=== PATIENT | female | born 1960 | race Caucasian/White ===

== ENCOUNTER → 2016-02-25 | Outpatient (CLI) | payer BC ==
--- NOTE | 2016-02-25 09:44 | Diagnostic Imaging Report ---
Indication: Cough and right-sided chest pain for 3 days. Discussion: Two views of the chest were obtained, no comparison. The lungs are mildly hyperinflated. Normal heart size. No focal consolidation, pleural fluid, or pneumothorax. Age-related degenerative changes are noted within the thoracic spine. No acute osseous abnormality identified. Impression: 1. Mild pulmonary hyperinflation. Dictated by: Dictated on workstation # [id number]
== END ==
LOC: RAD 09:25
PROVIDERS: ATTEND Nurse Practitioner Family
DX: R05 Cough (principal)
CPT/HCPCS: 71020

== ENCOUNTER → 2016-05-27 | Outpatient (REF) | payer BC | LOC: LAB 11:39 | PROVIDERS: ATTEND Family Medicine | DX: R07.89 Other chest pain (principal) | CPT/HCPCS: 82553; 84484 ==

== ENCOUNTER → 2016-06-01 | Outpatient (CLI) | payer BC ==
--- NOTE | 2016-06-01 10:28 | PROCEDURE REPORT ---
DATE OF NOTE: 06/01/2016 PRE-OPERATIVE DIAGNOSIS: Atypical chest pain POST-OPERATIVE DIAGNOSIS: Atypical chest pain PROCEDURE: Stress treadmill SURGEON: Sivakumar Lim MD SURGERY AIDE: None ANESTHESIA: None HISTORY AND PRESENT ILLNESS: The patient is a 48-year-old white female, who was having some atypical chest pain not associated with exercise. She was then scheduled for cardiac stress treadmill. DESCRIPTION OF PROCEDURE: After informed signed consent, the patient was placed on the treadmill and a Romel protocol was used. She exercised for 9 minutes 22 seconds on that protocol achieving greater than 85% of her maximum heart rate. Predicted duration for age was 7 minutes 0 seconds. Blood pressure response was adequate. She had no chest pain, no claudication and developed no arrhythmias. She had no significant ST segment changes noted on her tracing. CONCLUSION: Negative stress treadmill. Recommendation of these results was discussed by me with the patient. Keep her regular scheduled follow up with Dr. Lim.
== END ==
LOC: RT 07:28
PROVIDERS: ATTEND Family Medicine
DX: R07.89 Other chest pain (principal)
CPT/HCPCS: 93017

== ENCOUNTER → 2016-06-10 | Outpatient (CLI) | payer BC ==
--- NOTE | 2016-06-10 12:04 | Diagnostic Imaging Report ---
INDICATION: Acute right knee pain. COMPARISONS: None available. TECHNIQUE: 3 views of the right knee. FINDINGS: No acute fracture or traumatic malalignment. Normal osseous mineralization. Degenerative joint space narrowing of the lateral compartment with small marginal osteophytes are noted. There are also small osteophytes within the patellofemoral compartment. Suprapatellar and infrapatellar enthesopathy is noted. Small knee joint effusion. There is a nonaggressive exophytic excrescence arising from the medial aspect of proximal fibular head with tip pointing inferiorly. This appearance favors a benign osteochondroma. IMPRESSION: 1. No acute osseous abnormality about the right knee. 2. Mild tricompartmental knee osteoarthritis, greatest in the lateral compartment. 3. Incidental note of benign osteochondroma of the proximal fibular metaphysis. Dictated by: Dictated on workstation # [id number]
== END ==
LOC: RAD 08:39
PROVIDERS: ATTEND Nurse Practitioner Family
DX: M25.561 Pain in right knee (principal); M17.11 Unilateral primary osteoarthritis, right knee
CPT/HCPCS: 73562

== ENCOUNTER → 2016-06-22 | Outpatient (CLI) | payer BC ==
--- NOTE | 2016-06-22 15:40 | Diagnostic Imaging Report ---
INDICATION: Uterine enlargement. TECHNIQUE: Pelvic sonography was performed with transabdominal views. FINDINGS: The uterus measures 12.3 x 5.6 x 8.6 cm. There are multiple probable fibroid lesions in the uterus with the largest measuring 3.3 x 3.2 x 3.7 cm. The right ovary is normal and measures 1.9 x 1.3 x 1.2 cm. The left ovary is normal and measures 2.2 x 1.3 x 1.5 cm. There is no free fluid. IMPRESSION: Enlarged uterus with multiple fibroids, the largest measuring about 3.7 cm in maximal diameter. The endometrium is not thickened. Both ovaries appear unremarkable. Dictated by: Dictated on workstation # [id number]
--- NOTE | 2016-06-24 14:11 | Diagnostic Imaging Report ---
DIG [facility]ERNZO BILAT SCREEN W CAD. COMPARISON: 06/17/2015, 06/14/2014, and 06/13/2013. INDICATION: Screening mammography. TECHNIQUE: Digital screening mammography was obtained with a computer-aided detection (CAD) system. FINDINGS: The breasts are almost entirely fatty. No dominant mass, suspicious microcalcifications or architectural distortion to suggest malignancy. IMPRESSION: Stable mammogram without evidence of malignancy. Followup screening mammogram in 12 months is recommended. ACR BI-RADS Category 1: Negative. Result letter will be mailed to the patient. Note: At least 10% of breast cancer is not imaged by mammography. Dictated by: Dictated on workstation # [id number]
== END ==
LOC: RAD 13:56
PROVIDERS: ATTEND Obstetrics & Gynecology
DX: Z12.31 Encounter for screening mammogram for malignant neoplasm of breast (principal); N85.2 Hypertrophy of uterus
CPT/HCPCS: 76856; G0202

== ENCOUNTER → 2016-06-29 | Outpatient (REF) | payer BC ==
[2016-06-29 10:18] LABS: BILIRUBIN,URINE Negative (Negative); CLARITY,URINE Clear; COLOR,URINE Yellow; GLUCOSE, URINE (UA) Negative (Negative); LEUKOCYTE ESTERASE, URINE Negative (Negative); UROBILINOGEN,URINE 0.2 mg/dL (0.2-1.0)
[2016-06-29 10:30] LABS: RBC,URINE 0-2 /HPF; URINE CENTRIFUGED VOLUME 12 mL
== END ==
LOC: LAB 09:43
PROVIDERS: ATTEND Nurse Practitioner Family
DX: R31.0 Gross hematuria (principal)
CPT/HCPCS: 81003; 81015